=== PATIENT | female | born 1955 ===

== ENCOUNTER 2020-08-22 11:18 | Observation (INO) ==
[~2020-08-22 11:18] MED LIST: Ringers Solution, Lactated 1,000 ML IVC ONE
[2020-08-22] MEDS ORDERED: Acetaminophen IV 1,000 MG/100 ML BAG IVPB ONE (11:40)
[2020-08-22] MEDS ORDERED: Famotidine 20 MG/2 ML VIAL IVP ONE (11:40)
[2020-08-22] MEDS ORDERED: *HR* Midazolam HCl 5 MG/5 ML VIAL IVP ONE (11:59)
[2020-08-22] MEDS ORDERED: *HR* FentaNYL (PF) 100 MCG/2 ML VIAL ONE (11:59)
[2020-08-22] MEDS ORDERED: Lidocaine -MPF 2% 2 ML VIAL ONE (11:59)
[2020-08-22] MEDS ORDERED: *HR* Propofol 200 MG/20 ML VIAL IVP ONE ×2 (12:02→13:47)
[2020-08-22] MEDS ORDERED: Ondansetron 4 MG/2 ML VIAL ONE ×2 (12:03→14:10)
[2020-08-22] MEDS ORDERED: CeFAZolin Syr 3,000MG/30 ML 3,000 MG/30 ML SYRINGE IVPB ONE (12:29)
[2020-08-22] MEDS ORDERED: Naloxone 0.4 MG/ML INJ IVP PRN (12:52)
[2020-08-22] MEDS ORDERED: Ondansetron 4 MG/2 ML VIAL IVP PRN ×2 (12:52→16:41)
[2020-08-22] MEDS ORDERED: Nitroglycerin 0.4 MG TAB.SUBL SL PRN (12:52)
[2020-08-22] MEDS ORDERED: Albuterol 2.5 MG/3 ML NEBULIZER IH PRN (12:52)
[2020-08-22] MEDS ORDERED: *HR* FentaNYL (PF) 100 MCG/2 ML VIAL IVP PRN (12:52)
[2020-08-22] MEDS ORDERED: *HR* OxyCODONE Immed Rel 5 MG TABLET PO PRN ×2 (12:52→16:45)
[2020-08-22] MEDS ORDERED: ROPIVACAINE/PF/NS 0.25% 1 EACH SYRINGE INTRAART ONE (12:53)
[2020-08-22] MEDS ORDERED: Ropivacaine/PF 0.5% 30 ML VIAL ONE (12:53)
[2020-08-22] MEDS ORDERED: *HR* Succinylcholine 200 MG/10 ML VIAL IVP ONE (13:24)
[2020-08-22] MEDS ORDERED: *HR* Rocuronium Bromide 50 MG/5 ML VIAL ONE (13:24)
[2020-08-22] MEDS ORDERED: Lidocaine HCL 4 ML Topical Solution (Laryng-O-Jet Kit Sterile Pak) TP ONE (13:24)
[2020-08-22] MEDS ORDERED: EPHEDrine 50 MG/ML VIAL ONE (13:59)
[2020-08-22] MEDS ORDERED: Sugammadex Sodium 200 MG/2 ML VIAL IV ONE (14:19)
[2020-08-22] MEDS ORDERED: *HR* HYDROcodone/Acet 5/325 mg TABLET PO PRN (16:45)
[2020-08-22] MEDS ORDERED: Acetaminophen 325 MG TABLET PO PRN (16:45)
[2020-08-22] MEDS: *HR* Pioglitazone 45 MG TABLET PO SCH (17:38)
[2020-08-22] MEDS: *HR* Heparin 5,000 UNIT/ML VIAL SQ SCH (17:38)
[2020-08-22] MEDS: CeFAZolin 2 GM/120 ML BAG IVPB SCH (21:28)
[2020-08-23] MEDS: CeFAZolin 2 GM/120 ML BAG IVPB SCH (05:20)
[2020-08-23] MEDS: *HR* Heparin 5,000 UNIT/ML VIAL SQ SCH (06:08)
[2020-08-23 06:41] VITALS: BP 108/61
[2020-08-23] MEDS: *HR* Pioglitazone 45 MG TABLET PO SCH (08:23)
[2020-08-23] MEDS ORDERED: *HR* Glimepiride 2 MG TABLET PO SCH (09:00)
== END 2020-08-23 14:35 | disposition home or self-care (01) ==
LOC: 3NENU 11:18 → SAMDAYPAV 11:18 → 3NENU 15:52 → SAMDAYPAV 16:15 → 3NENU 16:50 → SUATTDRO 17:33
PROVIDERS: ADMIT Internal Medicine; ATTEND Pharmacist